=== PATIENT | female | born 1985 | race Caucasian/White ===

== ENCOUNTER 2017-01-08 20:51 | Emergency (ER) | payer BC ==
[2017-01-08 21:03] VITALS: BP 147/97
[2017-01-08] MEDS ORDERED: Ondansetron 4 MG Tab.DIS PO ONE (21:49)
--- NOTE | 2017-01-09 00:44 | EDM.PDOC ---
ED HPI GENERAL MEDICAL PROBLEM - General Chief Complaint: Abdominal Pain Stated Complaint: ABDOMINAL PAIN Time Seen by Provider: 01/08/17 21:12 Source of Information: Reports: Patient, RN Notes Reviewed - History of Present Illness INITIAL COMMENTS - FREE TEXT/NARRATIVE: 31-year-old female [facility] for further evaluation of abdominal pain. She had onset of this pain at about noon today, about 9 hours ago. Pain started in the mid abdomen and right midabdomen and continues to be primarily in that area. Has had diminished appetite, nausea but no vomiting or diarrhea. She presented to the [facility] for evaluation later in the afternoon. White blood count was quite elevated at 19, 400. Urinalysis obtained did not show UTI. CT of abdomen and pelvis was done over at the clinic and did not show appendicitis or other acute etiology for fever within the abdomen or pelvis. Patient states the pain was quite severe mid to later afternoon and now has subsided a fair amount. She continues to have some discomfort of the right abdomen and flank but much more tolerable. When asked about possible bad food ingestion she states that she did eat some turkey sausage type patties this past morning for breakfast that were a few days when necessary the expiration date. However the food looked okay, did not smell or taste bad. She has not vomited and has not had diarrhea. Right Middle Abdomen Pain Score (Numeric/FACES): 5 - Related Data Allergies Allergy/AdvReac Type Severity Reaction Status Date / Time amoxicillin Allergy Hives Verified 01/08/17 21:04 Penicillins Allergy Hives Verified 01/08/17 21:04 Home Meds: Home Meds Levothyroxine [Synthroid] 100 mcg PO DAILY 01/08/17 [History] Lisinopril 40 mg PO DAILY 01/08/17 [History] Pravastatin Sodium 20 mg PO DAILY 01/08/17 [History] SitaGLIPtin [Januvia] 100 mg PO DAILY 01/08/17 [History] amLODIPine [Norvasc] 5 mg PO DAILY 01/08/17 [History] Past Medical History Cardiovascular History: Reports: Hypertension MANAGER PART History: Reports: Other (See Below) Other OB/BYN History: ovarian cyst Endocrine/Metabolic History: Reports: Diabetes, Type II, Hypothyroidism, Obesity /BMI 30+ - Past Surgical History HEENT Surgical History: Reports: Tonsillectomy GI Surgical History: Reports: Cholecystectomy Female Surgical History: Reports: Cystectomy Social & Family History - Tobacco Use Smoking Status *Q: Never Smoker Second Hand Smoke Exposure: No - Caffeine Use Caffeine Use: Reports: Coffee - Alcohol Use Days Per Week of Alcohol Use: 0 - Recreational Drug Use Recreational Drug Use: No ED ROS GENERAL - Review of Systems Review Of Systems: See Below Constitutional: Reports: Fever (This past afternoon, now gone) HEENT: Denies: Throat Pain Respiratory: Denies: Shortness of Breath Cardiovascular: Denies: Chest Pain GI/Abdominal: Reports: Abdominal Pain (Right abdomen and right flank), Decreased Appetite, Nausea. Denies: Diarrhea, Vomiting : Reports: No Symptoms Musculoskeletal: Denies: Back Pain Skin: Reports: No Symptoms Neurological: Reports: No Symptoms ED EXAM, GI/ABD - Physical Exam Exam: See Below General Appearance: Alert, No Apparent Distress Throat/Mouth: Normal Inspection, Normal Oropharynx Neck: Supple Respiratory/Chest: No Respiratory Distress, Lungs Clear, Normal Breath Sounds Cardiovascular: Tachycardia (Heart rate 101 on arrival to ED) GI/Abdominal Exam: Soft, Tender (Very minimal tenderness right mid abdomen and right flank at time of my exam), Other (Remainder of abdomen and pelvis completely soft and nontender). No: Guarding, Rebound Back Exam: No: CVA Tenderness (L), CVA Tenderness (R) Extremities: Normal Inspection Neurological: Oriented, No Motor/Sensory Deficits Skin Exam: Warm, Dry, Normal Color Course - Vital Signs Last Recorded V/S: Last Vital Signs Temp 96.9 F 01/08/17 20:59 Pulse 101 H 01/08/17 20:59 Resp 14 01/08/17 20:59 BP 147/97 H 01/08/17 20:59 Pulse Ox 98 01/08/17 20:59 - Orders/Labs/Meds Labs: Laboratory Tests 01/08/17 01/08/17 Range/Units 10:17 10:17 Sodium 136 (136-145) mEq/L Potassium 4.2 (3.5-5.1) mEq/L Chloride 102 (98-107) mEq/L Carbon Dioxide 25 (21-32) mEq/L Anion Gap 13.2 (5-15) BUN 13 (7-18) mg/dL Creatinine 0.7 (0.55-1.02) mg/dL Est Cr Clr Drug Dosing 116.39 mL/min Estimated GFR (MDRD) > 60 (>60) mL/min BUN/Creatinine Ratio 18.6 H (14-18) Glucose 125 H (74-106) mg/dL Calcium 9.6 (8.5-10.1) mg/dL Total Bilirubin 0.4 (0.2-1.0) mg/dL GGT 35 (5-55) U/L AST 12 L (15-37) U/L ALT 25 (14-59) U/L Alkaline Phosphatase 88 (46-116) U/L C-Reactive Protein 6.6 H* (<1.0) mg/dL Total Protein 7.5 (6.4-8.2) g/dl Albumin 3.4 (3.4-5.0) g/dl Globulin 4.1 gm/dL Albumin/Globulin Ratio 0.8 L (1-2) Meds: Medications Discontinued Medications Generic Name Dose Route Start Last Admin Trade Name Freq PRN Reason Stop Dose Admin Ondansetron HCl 4 mg 01/08/17 21:49 01/08/17 22:22 Zofran Odt PO 01/08/17 21:50 4 mg ONETIME ONE Administration - Re-Assessments/Exams Free Text/Narrative Re-Assessment/Exam: 01/09/17 04:55. I did not repeat white blood count is that wasn't the clinic just a few hours prior. Did check a C-reactive protein and that is mildly elevated at a little over 6. Chemistries including liver function tests and bilirubin are normal. Patient is been resting fairly comfortably while here in the ED. We did give Zofran 4 mg ODT. No further meds given. She did have low- grade fever at the clinic but afebrile on arrival to ED. Patient is driving so we have not given anything stronger for pain while here in the ED. I did write a prescription for a small number of hydrocodone if the pain does get more severe tonight to take as needed. Discharge instructions as documented. Departure - Departure Time of Disposition: 00:42 Disposition: Home, Self-Care 01 Condition: Fair Clinical Impression: Abdominal pain Qualifiers: Abdominal location: right lower quadrant Qualified Code(s): R10.31 - Right lower quadrant pain - Discharge Information Instructions: Abdominal Pain, Adult, [id number] Referrals: Deo Mendoza MD [Primary Care Provider] - Forms: ED Department Discharge Additional Instructions: Rest, clear liquids until this afternoon, then careful bland diet as tolerated, you may take a hydrocodone pain pill when you get home and continue that every 4 -6 hours if needed for severe pain, do not drive or work when taking hydrocodone , Tylenol for mild discomfort as needed do not take Tylenol and hydrocodone at the same time, follow-up clinic Sunday if symptoms have not completely resolved, return to ED if symptoms worsening in any way at any time
== END 2017-01-09 00:59 | disposition home or self-care (01) ==
LOC: JD.ED 20:51
DX: R10.31 Right lower quadrant pain (principal); I10 Essential (primary) hypertension; E11.9 Type 2 diabetes mellitus without complications; E03.9 Hypothyroidism, unspecified; E66.9 Obesity, unspecified; Z90.49 Acquired absence of other specified parts of digestive tract; Z98.890 Other specified postprocedural states; Z79.899 Other long term (current) drug therapy; Z90.6 Acquired absence of other parts of urinary tract; Z88.0 Allergy status to penicillin; Z88.1 Allergy status to other antibiotic agents; Z68.45 Body mass index [BMI] 70 or greater, adult
CPT/HCPCS: 36415; 80053; 82977; 86140; 99284; A9270; 99283